=== PATIENT | male | born 1975 | race Caucasian/White ===

== ENCOUNTER 2019-05-25 15:41 | Emergency (ER) | payer OTHER ==
[2019-05-25] MEDS ORDERED: HYDROcodone/Acetaminophen 10/325 mg Tablet ONE (16:28)
--- NOTE | 2019-05-25 16:58 | RAD ---
3 views left hand: 05/25/2019 COMPARISON: 05/22/2019 HISTORY: Injury, trauma, pain FINDINGS: There is soft tissue swelling with skin irregularity involving the medial aspect of the thi rd digit and the lateral aspect of the fourth digit suggesting areas of laceration. Probable punctate soft tissue foreign body is noted adjacent to the third middle phalanx dorsally. Th ere is an obliquely oriented mildly comminuted and displaced fracture involving the fourth middle phalanx. On the lateral examination there is a linear density suggesting a fracture fragment with 3 m m of volar displacement, slightly worsened. An adjacent probable punctate soft tissue foreign body is seen. IMPRESSION: Fracture involving the fourth middle phalanx as above. Areas of soft tissue injury are se en involving the third and fourth digits with probable punctate radiopaque soft tissue foreign bodies.
[2019-05-25] MEDS ORDERED: Aspirin Chewable 81 MG TAB ONE (20:03)
== END 2019-05-25 20:24 | disposition home or self-care (01) ==
LOC: ERS 15:41
DX: S62.625B Displaced fracture of middle phalanx of left ring finger, initial encounter for open fracture (principal); I10 Essential (primary) hypertension; E78.5 Hyperlipidemia, unspecified; E78.00 Pure hypercholesterolemia, unspecified; F41.9 Anxiety disorder, unspecified; F32.9 Major depressive disorder, single episode, unspecified; Z79.899 Other long term (current) drug therapy; W23.1XXA Caught, crushed, jammed, or pinched between stationary objects, initial encounter
CPT/HCPCS: 26725

== ENCOUNTER → 2019-05-27 | Day surgery (SDC) | payer OTHER ==
[2019-05-26 16:50] VITALS: BMI 30.4
[~2019-05-27] MED LIST: Bacitracin Zinc Ointment 30 gm TUBE ONE; Betamet Acet/Betamet Na Ph 30 MG/5 ML VIAL ONE; Bupivacaine PF 0.5% 30 ML VIAL ONE; Fentanyl 100 MCG/2 ML VIAL ONE; Ketorolac Tromethamine 30 MG/ML VIAL ONE; Lidocaine 1% PF 5 ML VIAL ONE; Metoprolol Tartrate 5 MG/5 ML VIAL ONE; Midazolam HCl 2 mg/2 ml Vial ONE; Ondansetron PF 4 MG/2 ML Vial ONE; PROPOFOL 200 MG/20 ML VIAL ONE; Sodium Chloride 0.9% 10 ML ONE
[2019-05-27 14:01] LABS: #Eosinphils 0.3 thou/uL (0.0-0.7); #Lymphocytes 2.4 thou/uL (1.20-3.40); #Monocytes 0.6 thou/uL (0.11-0.59); #Neutrophils 6.6 thou/uL (1.40-6.50); %Basophils 0.4 % (0.0-1.0); %Eosinophils 3.1 % (0.0-10.0); %Lymphocytes 24.3 % (21.0-51.0); %Monocytes 6.1 % (0.0-10.0); %Neutrophils 66.2 % (42.0-75.0); Hemoglobin 13.9 g/dL (14.0-18.0); Mean Corpuscular HGB CONC 35.7 g/dL (32.0-36.0); Mean Corpuscular Hemoglobin 33.1 pg (27.0-31.0); Mean Corpuscular Volume 92.6 fL (78.0-98.0); Mean Platelet Volume 7.4 fL (7.4-10.4); Platelet Count 315 thou/uL (130-400); RBC Distribution Width 12.1 % (11.5-14.5); Red Blood Cell (RBC) Count 4.22 mill/uL (4.70-6.10); White Blood Cell (WBC) Count 9.9 thou/uL (4.8-10.8)
[2019-05-27 14:11] LABS: Anion Gap 13 mmol/L (10-20); BUN (Urea Nitrogen) 17 mg/dL (8.9-20.6); Calc. Creatinine Clearance 134 mL/min (70-130); Calcium 10.2 mg/dL (7.8-10.44); Carbon Dioxide 29 mmol/L (22-29); Chloride 105 mmol/L (98-107); Estimated GFR-MDRD 77; Glucose 97 mg/dL (70-105); Potassium 4.5 mmol/L (3.5-5.1); Sodium 142 mmol/L (136-145)
--- NOTE | 2019-05-28 07:47 | RAD ---
LEFT HAND: Date: 05/27/19 Three fluoroscopic images from OR are presented of the left ring finger. INDICATION: Open reduction and internal fixation left ring finger. FINDINGS/IMPRESSION: Findings indicate intraoperative imaging during internal fixation procedure. POS: OFF
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
== END ==
LOC: SDC 11:37
PROVIDERS: ATTEND Orthopaedic Surgery Hand Surgery
PROC: 0PSV04Z Reposition Left Finger Phalanx with Internal Fixation Device, Open Approach (ICD-10-PCS; principal; 2019-05-27)
PROC: 0RQX0ZZ Repair Left Finger Phalangeal Joint, Open Approach (ICD-10-PCS; principal; 2019-05-27)
PROC: 0LU807Z Supplement Left Hand Tendon with Autologous Tissue Substitute, Open Approach (ICD-10-PCS; principal; 2019-05-27)
DX: S62.653B Nondisplaced fracture of middle phalanx of left middle finger, initial encounter for open fracture (principal); S62.655B Nondisplaced fracture of middle phalanx of left ring finger, initial encounter for open fracture; Z88.5 Allergy status to narcotic agent; Z91.013 Allergy to seafood
CPT/HCPCS: 76000; 80048; 85025; C1713; J0690; J0702; J2250; J3010; J3490; S0020